=== PATIENT | female | born 1940 | race Caucasian/White ===

== ENCOUNTER 2019-06-15 20:22 | Inpatient (IN) ==
[2019-06-15 20:33] VITALS: BMI 29.2
--- NOTE | 2019-06-15 20:42 | DR.CP ---
HPI Time Seen Time Seen by Provider: 06/15/19 20:41 PCP Primary Care Physician: JANENE Oconnell Chief Complaint Doctor Comments: Patient is 79 year old female who presents with chest pain. She stated that the chest pain is located under her right breast and hurts when she breathes. She states that she has been taking shallow breaths since she's had this pain. patient states that the pain started this AM it has not let up. She is concerned with it. Patient does not report any trauma . She does not have any past medical history of cardiac issues. She states that she is a lifelong nonsmoker. Chief Complaint:: PT AMBULATORY IN ED WITH C/O CHEST PAIN AND SHORTNESS OF BREATH. PT STATES PAIN IS CONSTANT UNDER RIGHT RIB THROUGH TO BACK AND HURTS MORE WHEN SHE BREATHES. PAIN AND SOB STARTED AROUND 5AM. Source History Provided: Patient Mode of Arrival Mode of Arrival: Ambulatory Timing Onset of Chief Complaint: 06/15/19 PMH PMH Past Medical History: Yes Past Medical History: Asthma, Diabetes, GERD, Hypertension and Hypothyroidism Past Medical History Comment: HLD Past Surgical History: Yes Surgical History: Hysterectomy and Tonsillectomy Past Surgical History Comment: CARPAL TUNNEL PITUITARY BRAIN TUMOR Family History History of Family Medical Conditions: Yes Family Medical History: Diabetes Mellitus, Cancer, Coronary Artery Disease and Hypertension Social History Does patient currently use any type of tobacco product: No Have you used tobacco products in the last 12 months: No Type of Tobacco Use: None Does any household member use tobacco: No Alcohol Use: None Do you use any recreational Drugs:: No Lives With: Spouse Lives Where: Home infectious screening In the last 2 months have you had wt loss of >10#?: NO Have you had fever, night sweats or hemotysis?: No Have you traveled outside the country in the last 6 months?: No Isolation: Standard ROS Review of Systems Constitutional: No Symptoms Reported Eyes: No Symptoms Reported ENTM: No Symptoms Reported Respiratoy: Short of Breath Cardiovascular: Chest Pain Gastrointestinal/Abdominal: No Symptoms Reported Genitourinary: No Symptoms Reported Neurological: No Symptoms Reported Musculoskeletal: No Symptoms Reported Integumentary: No Symptoms Reported Hematologic/Lymphatic: No Symptoms Reported Endocrine: No Symptoms Reported Psychiatric: No Symptoms Reported All Other Systems: Reviewed and Negative PE Vitals Vitals: Temperature 98.6 F Pulse Rate [Left Brachial] 87 Pulse Rate 67 Respiratory Rate 18 Blood Pressure 142/65 O2 Sat by Pulse Oximetry 96 General General Appearance: Alert, Anxious and In Distress (moderate ) Head Head Exam: Normal Inspection, Atraumatic and Normocephalic Eyes Eye exam: Normal Appearance, PERRL and EOMI ENT ENT Exam: Normal Exam and Normal Oropharynx Chest Chest Inspection: Normal Inspection and Symmetric Chest Wall Rise Respiratory Respiratory Exam: Normal Lung Sounds Bilat Respiratory Exam: Bilateral: Clear to Auscultation Cardiovascular Cardiovascular Exam: Regular Rate and Normal Rhythm Pulse: Normal Edema: Normal Abdominal Exam Abdominal Exam: Normal Inspection, Normal Bowel Sounds and Soft Extremities Extremities Exam: Normal Inspection and Full ROM Back Back Exam: Normal Inspection and Full ROM Neurologic Neurological Exam: Alert, Oriented X3, CN II-XII Intact and Normal Gait Psychiatric Psychiatric Exam: Normal Affect and Normal Mood Skin Skin Exam: Warm, Dry, Intact and Normal Color MDM Additional Information Additional Information Obtained From: Old Records Differential Diagnosis Differential Diagnosis: Angina, Aortic Dissection, Chest Wall Pain, Costochondritis, Esophageal Reflux/Spasm, Gastritis, Myocardial Infarction, Pleuritis, Pneumonia and Pulmonary Embolus COURSE Treatment Treatment: I spoke with radiologists at approximately 00:55 he relayed to me that the patient had extensive pulmonary emboli throughout the right upper lower and middle lobe. Spoke with doctor Tran at 1:50 AM pt started on heparin drip. He accepts admission. Patient has been stable an O2 saturation has been greater than 92 % her entire Ed state. Pain has been addressed with pain medication. Patient was admitted to the hospital ICU. Reevaluation 1st: Unchanged (22:00 pt stable ) 2nd: Improved (23:05 pt states that pain has drastically improved since pain medication and she feels like she can breath without issue) 3rd: Unchanged (01:06 pt stable I discussed with her the findings on the CT and the need for admission ) Consultation Consultation Comments: Dr. Tran accepts admission at 01:50 Education/Counseling Education/Counseling: Patient, Family, Education and Counseling Educated On: Treatment, Diagnosis, Prognosis and Needs for Follow Up ROR Labs Reviewed Laboratory Results Reviewed?: Yes Result Diagrams: 06/19/19 04:49 06/19/19 04:49 Laboratory: WBC 13.1 X10^3/uL (3.6-10.0) H 06/15/19 21:27 RBC 4.44 X10^6/uL (3.5-5.4) 06/15/19: Hgb 13.4 g/dL (12.0-16.0) 06/15/19: Hct 39.9 % (36.0-47.0) 06/15/19: MCV 90.0 fL (80.0-100.0) 06/15/19: MCH 30.3 pg (27.0-34.0) 06/15/19: MCHC 33.7 g/dL (33.0-35.0) 06/15/19: RDW 13.0 % (11.6-16.5) 06/15/19: Plt Count 180 X10^3/uL (150.0-450.0) 06/15/19 MPV 9.7 fL (7.4-11.0) 06/15/19 Neut % (Auto) 69.6 % (42.0-75.0) 06/15/19 Lymph % (Auto) 16.9 % (21.0-51.0) L 06/15/19 [place] % (Auto) 10.6 % (0.0-13.0) 06/15/19 Eos % (Auto) 1.5 % (0.9-2.9) 06/15/19 Baso % (Auto) 1.4 % (0.2-1.0) H 06/15/19 Neut # (Auto) 9.1 x10^3/uL (2.2-4.8) H 06/15/19 Lymph # (Auto) 2.2 X10^3/uL (1.3-2.9) 06/15/19: [place] # (Auto) 1.4 x10^3/uL (0.3-0.8) H 06/15/19 Eos # (Auto) 0.2 x10^3/uL (0.0-0.2) 06/15/19 Baso # (Auto) 0.2 X10^3/uL (0.0-0.1) H 06/15/19 Absolute Nucleated RBC 0.0 /100WBC 06/15/19: PT 12.8 SECONDS (11.8-14.3) 06/15/19 21: INR Target Range - 06/15/19 21: INR 1.00 (0.8-1.3) 06/15/19 21: APTT 25.9 SECONDS (22.9-36.5) 06/15/19 21: PTT Comment - 06/15/19 21: D-Dimer 1080 ng/mL (0-400) H* 06/15/19 21: Sodium 139 mmol/L (136-145) 06/15/19 21: Corrected Sodium TNP 06/15/19 21: Potassium 3.9 mmol/L (3.5-5.1) 06/15/19: Chloride 101 mmol/L (98-107) 06/15/19: Carbon Dioxide 31.3 mmol/L (21-32) 06/15/19 21: BUN 15 mg/dL (7-18) 06/15/19 21: Creatinine 0.92 mg/dL (0.55-1.02) 06/15/19 21: Est GFR (MDRD) Af Amer > 60 (>60) 06/15/19: Est GFR (MDRD) Non-Af > 60 (>60) 06/15/19 21: Glucose 106 mg/dL (65-99) H 06/15/19 21: Calcium 9.2 mg/dL (8.5-10.1) 06/15/19: Corrected Calcium 9.8 mg/dL (8.5-10.1) 06/15/19 21: Total Bilirubin 0.30 mg/dL (0.2-1.0) 06/15/19 21: AST 16 Units/L (15-37) 06/15/19 21: ALT 21 Units/L (12-78) 06/15/19 21: Alkaline Phosphatase 66 Units/L (46-116) 06/15/19 21: Creatine Kinase 44 Units/L (26-192) 06/15/19 21: CK-MB (CK-2) < 1.0 ng/mL (0-4.0) 06/15/19 21:27 CK/CKMB % Calc 2.3 % (<4) 06/15/19 21:27 Troponin I < 0.02 ng/mL (0-1.5) 06/15/19 21:27 Total Protein 7.2 g/dL (6.4-8.2) 06/15/19 21:27 Albumin 3.3 g/dL (3.4-5.0) L 06/15/19 21:27 Globulin 3.9 g/dL (2.5-4.5) 06/15/19 21:27 Albumin/Globulin Ratio 0.8 Ratio (1.1-2.1) L 06/15/19 21:27 Other Results Comments: CTA of chest showed right sided multiple PEs in upper middle and lower lobes , this was discussed with radiologist, there was issues with official report crossing over and it will be fixed in the AM. XRAY XRAY Interpreted by: Both X-ray Results: Preliminary read: possible right lower lobe atelectasis EKG Rate: 72 (no prior EKG available in EMR, read by Codey You @ 06/15/2019 22:00) [place]: Normal Rhythm: NSR Block: None Hypertrophy: None ST: Nonsp Opioid Opioid Risk Tool Age (Williams box if 16-45): No History of Preadolescent Sexual Abuse: No Total: 0 Total Score Risk Category: Low Risk Copyright: Gibbs predicting aberrant behaviors Diagnosis Discharge Problem: Pulmonary emboli Qualifiers: Pulmonary embolism type: multiple subsegmental (without acute cor pulmonale) Qualified Code(s): I26.94 - Multiple subsegmental pulmonary emboli without acute cor pulmonale Narrative Support Text: Today the patient was seen in the emergency department. All labs, imaging, consults with other specialists, and procedures were discussed with the patient and or patients family. All emergent needs such as pain mgmt, medical mgmt, Procedures, or consultations were addressed. The care plan has been discussed with the patient and or patients family. Patient and or family stated agreement and understanding of risks and benefits of care plans. admitted to hospital. please see EMR for full course of care. Instructions Instructions: Shortness of Breath, Adult, [id number] Pulmonary Embolism Abdominal Pain, Adult, Lwky-jg-Mbuy Type 1 Diabetes Mellitus, Diagnosis, Adult, Euqb-nl-Xucv Hypertension, Hokz-rj-Vwzu Community-Acquired Pneumonia, Adult, Jwbc-oi-Rbtx Forms: Excuse From Work or School Patient Portal
[2019-06-15] MEDS ORDERED: METHOCARBAMOL IM ONE (21:19)
[2019-06-15] MEDS ORDERED: ASPIRIN PO STA (21:20)
[2019-06-15] MEDS ORDERED: ASPIRIN ONE (21:35)
[2019-06-15] MEDS ORDERED: FLEXERIL TAB 10 MG ONE (21:36)
[2019-06-15] MEDS ORDERED: FLEXERIL TAB 10 MG PO ONE (21:38)
[2019-06-15 21:46] LABS: BASOPHILS # (AUTO) 0.2 X10^3/uL (0.0-0.1); BASOPHILS % (AUTO) 1.4 % (0.2-1.0); EOSINOPHILS # (AUTO) 0.2 x10^3/uL (0.0-0.2); EOSINOPHILS % (AUTO) 1.5 % (0.9-2.9); HEMATOCRIT 39.9 % (36.0-47.0); HEMOGLOBIN 13.4 g/dL (12.0-16.0); LYMPHOCYTES # (AUTO) 2.2 X10^3/uL (1.3-2.9); LYMPHOCYTES % (AUTO) 16.9 % (21.0-51.0); MEAN CORPUSCULAR HEMOGLOBIN 30.3 pg (27.0-34.0); MEAN CORPUSCULAR HGB CONC 33.7 g/dL (33.0-35.0); MEAN PLATELET VOLUME 9.7 fL (7.4-11.0); MONOCYTES # (AUTO) 1.4 x10^3/uL (0.3-0.8); MONOCYTES % (AUTO) 10.6 % (0.0-13.0); NEUTROPHILS # (AUTO) 9.1 x10^3/uL (2.2-4.8); NEUTROPHILS % (AUTO) 69.6 % (42.0-75.0); PLATELET COUNT 180 X10^3/uL (150.0-450.0); RED BLOOD COUNT 4.44 X10^6/uL (3.5-5.4); WHITE BLOOD COUNT 13.1 X10^3/uL (3.6-10.0)
[2019-06-15 22:05] LABS: BLOOD UREA NITROGEN 15 mg/dL (7-18); CALCIUM 9.2 mg/dL (8.5-10.1); CARBON DIOXIDE 31.3 mmol/L (21-32); CHLORIDE 101 mmol/L (98-107); CREATININE 0.92 mg/dL (0.55-1.02); SODIUM 139 mmol/L (136-145); TROPONIN I < 0.02 ng/mL (0-1.5); eGFR NON BLACK RACES > 60 (>60)
[2019-06-15 22:07] LABS: ALANINE AMINOTRANSFERASE 21 Units/L (12-78); ALBUMIN 3.3 g/dL (3.4-5.0); ALKALINE PHOSPHATASE 66 Units/L (46-116); ASPARTATE AMINO TRANSFERASE 16 Units/L (15-37); CKMB % 2.3 % (<4); COR CA(FOR HYPOALB) 9.8 mg/dL (8.5-10.1); CREATINE KINASE 44 Units/L (26-192); CREATINE KINASE MB < 1.0 ng/mL (0-4.0); TOTAL PROTEIN 7.2 g/dL (6.4-8.2)
[2019-06-15] MEDS ORDERED: NS 100 ML IV 100 ML IV ONE (23:31)
[2019-06-16] MEDS ORDERED: HEPARIN SODIUM IN D5W 25,000 UNITS/500 ML BAG IV PRN (01:43)
[2019-06-16] MEDS ORDERED: LOVENOX INJ 80 MG SYR SC SCH (02:00)
[2019-06-16] MEDS ORDERED: HEPARIN SODIUM INJ 5000 UNITS IVP ONE ×2 (02:22→18:50)
[2019-06-16] MEDS ORDERED: HEPARIN SODIUM INJ 5000 UNITS ONE (02:27)
[2019-06-16] MEDS ORDERED: HEPARIN SODIUM IN D5W 25,000 UNITS/500 ML BAG IV ONE (02:27)
[2019-06-16 02:39] LABS: BILIRUBIN,URINE NEGATIVE (NEGATIVE); BLOOD/HEMOGLOBIN,URINE 3+ (NEGATIVE); GLUCOSE, URINE NEGATIVE (NEGATIVE); KETONES,URINE NEGATIVE (NEGATIVE); LEUKOCYTE ESTERASE ,URINE NEGATIVE (NEGATIVE); NITRITES,URINE NEGATIVE (NEGATIVE); PROTEIN,URINE NEGATIVE (NEGATIVE); UROBILINOGEN,URINE NORMAL (NORMAL)
[2019-06-16 02:57] LABS: APPEARANCE,URINE SLIGHTLY HAZY (CLEAR); COLOR,URINE YELLOW (YELLOW)
[2019-06-16 02:58] LABS: CKMB % 2.6 % (<4); CREATINE KINASE 39 Units/L (26-192); CREATINE KINASE MB < 1.0 ng/mL (0-4.0); TROPONIN I < 0.02 ng/mL (0-1.5)
[2019-06-16 02:58] LABS: BACTERIA,URINE NEGATIVE /HPF (NEGATIVE); SQUAMOUS EPITHELIAL CELL,UR RARE /HPF (NEGATIVE)
[2019-06-16 05:27] LABS: BASOPHILS # (AUTO) 0.1 X10^3/uL (0.0-0.1); BASOPHILS % (AUTO) 0.6 % (0.2-1.0); EOSINOPHILS # (AUTO) 0.1 x10^3/uL (0.0-0.2); EOSINOPHILS % (AUTO) 0.8 % (0.9-2.9); HEMATOCRIT 36.6 % (36.0-47.0); HEMOGLOBIN 12.4 g/dL (12.0-16.0); LYMPHOCYTES # (AUTO) 1.8 X10^3/uL (1.3-2.9); LYMPHOCYTES % (AUTO) 14.8 % (21.0-51.0); MEAN CORPUSCULAR HEMOGLOBIN 30.4 pg (27.0-34.0); MEAN CORPUSCULAR HGB CONC 33.9 g/dL (33.0-35.0); MEAN CORPUSCULAR VOLUME 89.7 fL (80.0-100.0); MEAN PLATELET VOLUME 9.5 fL (7.4-11.0); MONOCYTES # (AUTO) 1.2 x10^3/uL (0.3-0.8); MONOCYTES % (AUTO) 9.7 % (0.0-13.0); NEUTROPHILS # (AUTO) 9.2 x10^3/uL (2.2-4.8); NEUTROPHILS % (AUTO) 74.1 % (42.0-75.0); PLATELET COUNT 159 X10^3/uL (150.0-450.0); RED BLOOD COUNT 4.08 X10^6/uL (3.5-5.4); WHITE BLOOD COUNT 12.5 X10^3/uL (3.6-10.0)
[2019-06-16 05:50] LABS: ALANINE AMINOTRANSFERASE 17 Units/L (12-78); ALBUMIN 2.8 g/dL (3.4-5.0); ALKALINE PHOSPHATASE 59 Units/L (46-116); ASPARTATE AMINO TRANSFERASE 15 Units/L (15-37); BLOOD UREA NITROGEN 14 mg/dL (7-18); CALCIUM 8.2 mg/dL (8.5-10.1); CARBON DIOXIDE 28.6 mmol/L (21-32); CHLORIDE 100 mmol/L (98-107); COR CA(FOR HYPOALB) 9.2 mg/dL (8.5-10.1); COR NA(FOR HYPERGLY) 139 mmol/L (136-145); CREATININE 0.94 mg/dL (0.55-1.02); SODIUM 136 mmol/L (136-145); TOTAL PROTEIN 6.1 g/dL (6.4-8.2); eGFR NON BLACK RACES > 60 (>60)
--- NOTE | 2019-06-16 05:50 | RAD ---
STUDY: FRONTAL VIEW CHESTCOMPARISON: NoneHISTORY: C/O CHEST PAIN AND SHORTNESS OF BREATH.FINDINGS:No focal consolidation is seen.The heart size is within normal limitsThe mediastinum is unremarkable.There is no evidence of pleural effusion or gross pneumothorax.Trachea is midline.IMPRESSION:1. NO FOCAL CONSOLIDATION SEEN.2. THE HEART SIZE IS NORMAL.Electronically signed by: Nicholas Hayden (Jun 16, 2019 05:48:56)
[2019-06-16] MEDS ORDERED: K-RIDER 10 MEQ/NS 100 ML 10 MEQ/100 ML BAG IV PRN (06:05)
[2019-06-16] MEDS ORDERED: POTASSIUM CHL 40 MEQ/NS 0.45% 500 ML IV PRN (06:05)
[2019-06-16] MEDS ORDERED: HumuLIN R SC PRN (06:05)
[2019-06-16] MEDS ORDERED: MICRO K EXTEN CAP 10 MEQ PO PRN (06:05)
[2019-06-16] MEDS ORDERED: POTASSIUM CHL 60 MEQ/NS 0.45% 500 ML IV PRN (06:05)
[2019-06-16] MEDS ORDERED: POTASSIUM CHLORIDE LIQ 20 MEQ UDC PO PRN (06:05)
[2019-06-16] MEDS ORDERED: KLOR-CON PO PRN (06:05)
[2019-06-16] MEDS ORDERED: K-DUR TAB 20 MEQ PO ONE (06:13)
[2019-06-16] MEDS ORDERED: HumuLIN R ONE (06:14)
[2019-06-16] MEDS: K-DUR TAB 20 MEQ PO PRN (06:25)
--- NOTE | 2019-06-16 09:07 | CT ---
HISTORYChest pain, shortness of breathSTUDYCTA chest for pulmonary embolusTechnique: Axial post-contrast images with coronal, sagittal, and 3 dimensional maximum intensity projection images obtained and evaluated. Dose reduction procedures were used with mA/kv adjusted for body size.COMPARISONNoneFINDINGSThe examination is positive for acute pulmonary thromboembolic disease with emboli identified in a segmental branch to the right upper lobe, nonocclusive embolus in the arterial branch to the right lower lobe, and multiple right lower lobe segmental branches. Examination of the mediastinum demonstrated no evidence for mediastinal masses, enlarged mediastinal or enlarged hilar adenopathy, or significant aortic abnormality. There is a trace right pleural effusion present. No chest wall or axillary abnormality is identified. Those portions of the upper abdominal organs visualized were within normal limits. Examination of the lung cohen demonstrated no significant nodules or masses. There are some dependent atelectatic changes in the lung bases right greater than left. No definite acute alveolar infiltrates or areas of consolidation are identified. No peribronchial thickening or bronchiectasis is identified.IMPRESSIONExam positive for acute pulmonary thromboembolic disease involving the right upper and right lower lobes as described in detail aboveNo definite acute infiltratesMild dependent atelectatic changes in the lung bases bilaterally.Electronically signed by: MAGGI TURNER (Jun 16, 2019 09:05:52)
[2019-06-16 09:23] LABS: CKMB % 3.6 % (<4); CREATINE KINASE 28 Units/L (26-192); CREATINE KINASE MB < 1.0 ng/mL (0-4.0); TROPONIN I < 0.02 ng/mL (0-1.5)
[2019-06-16] MEDS ORDERED: NS 500 ML IV 500 ML IV ONE (09:27)
[2019-06-16] MEDS: MAGNESIUM SULFATE 1 GRAM/100 mL PREMIX 1 GM/100 ML BAG IV PRN ×2 (09:34→10:30)
[2019-06-16 10:36] LABS: ABG BASE EXCESS 5.9 mmol/L (-2.0-2.0); ABG HCO3 29.7 mmol/L (22-26)
[2019-06-16] MEDS: HumuLIN R SC SCH ×3 (11:21→21:00)
[2019-06-16] MEDS ORDERED: DUONEB 0.5 MG/3 MG (3 mL) NEB SCH (11:22)
[2019-06-16] MEDS ORDERED: NORCO 5/325 MG TAB PO PRN (13:23)
--- NOTE | 2019-06-16 13:31 | DR.H&P ---
H&P - History & Physical for Day of: H&P Date: 06/16/19 - Chief Complaint Chief Complaint: RIB PAIN, CHEST PAIN, SOB - History of Present Illness History of Present Illness: PT IS 79 WF ER ADMISSION who presents with chest pain. She stated that the chest pain is located under her right breast and hurts when she breathes. She states that she has been taking shallow breaths since she's had this pain. patient states that the pain started this AM it has not let up. She is concerned with it. Patient does not report any trauma . She does not have any past medical history of cardiac issues. She states that she is a lifelong nonsmoker. Pt has PMH dm, htn, oa. Pt reports she is up to date on mmg and colonoscopy. - Past Medical History Past Medical History: Hypertension, Diabetes, Hypothyroidism, Asthma, GERD - Past Surgical History Surgical History: Hysterectomy - Family History Family Medical History: Diabetes Mellitus, Cancer, PA, Sudden Cardiac , Hypertension - Social History Does patient currently use any type of tobacco product: No Have you used tobacco products in the last 12 months: No Type of Tobacco Use: None Does any household member use tobacco: No Alcohol Use: None Drug Use: None - Medications Home Medications: naproxen [From Naprosyn] Allergy (Verified 06/15/19 20:33) CONTINUE taking the following medications amlodipine 5 mg PO DAILY 06/15/19 [History] aspirin [Aspirin Low Dose] 81 mg PO DAILY 06/15/19 [History] atorvastatin 20 mg PO QHS 06/15/19 [History] calcium carbonate-vitamin D3 [Calcium 600 + D(3)] 1 cap PO DAILY 06/15/19 [History] hydrochlorothiazide 12.5 mg PO QAM 06/15/19 [History] levothyroxine 125 mcg PO DAILY 06/15/19 [History] losartan 100 mg PO DAILY 06/15/19 [History] metformin 750 mg PO BID 06/15/19 [History] metoprolol succinate 100 mg PO DAILY 06/15/19 [History] om [id number]-kpeogac [Vit 3] 1 cap PO DAILY 06/15/19 [History] qgvyr-7x-api-epa-fish oil [[place]-3 Fish Oil] 1 cap PO DAILY 06/15/19 [History] pantoprazole 40 mg PO QAM 06/15/19 [History] pioglitazone 15 mg PO DAILY 06/15/19 [History] - Review of Systems Constitutional: Weakness Eyes: No Symptoms Reported, Vision Change Respiratory: Shortness of Breath, SOB with Excertion, Pleuritic Pain Cardiovascular: Chest Pain Gastrointestinal: No Symptoms Reported Genitourinary: No Symptoms Reported Musculoskeletal: Back Pain Skin: No Symptoms Reported Neurological: Weakness - Physical Exam Vital Signs: Temperature 98.9 F Pulse Rate [Left Brachial] 87 Pulse Rate 72 Respiratory Rate 29 Blood Pressure 148/76 O2 Sat by Pulse Oximetry 97 Oriented: Normal Eyes: Normal Ear: Normal Nose: Normal Throat: Normal Respiratory: Wheezes Throughout, RLL Diminished, LLL Diminished Cardiovascular: Normal, Murmur : Normal Auscultation: Bowel Sounds: Normal Palpation: Normal Tenderness: RUQ Skin: Decreased Turgur Musculoskeletal: Back:Thoracic, Back:Lumbar Psychiatric: Anxiety Affect: Anxious Speech Pattern: Clear, Appropriate - Assessment/Plan (1) Chest pain Status: Acute Plan: ADMIT, SERIAL CE AND EKG. CONTINUOUS SUPPLEMENTAL O2. CTA CHEST IN ER, HEPARIN DRIP. VERIFY HOME MEDICATION, SSI, BS CONTROL. ECHO, VENOUS US LE, RESP CONSULT. PAIN CONTROL, PT/PTT/INR. HYPER COAGULATION PANEL ON ADMISSION (2) Shortness of breath Status: Acute (3) Diabetes Status: Acute (4) Hypertension Status: Acute (5) Pulmonary emboli Qualifiers: Pulmonary embolism type: multiple subsegmental (without acute cor pulmonale) Qualified Code(s): I26.94 - Multiple subsegmental pulmonary emboli without acute cor pulmonale Status: Acute - Allergies Allergies/Adverse Reactions: Allergies Allergy/AdvReac Type Severity Reaction Status Date / Time naproxen [From Naprosyn] Allergy Verified 06/15/19 20:33
[2019-06-16 14:04] LABS: FREE T4 (FREE THYROXINE) 1.59 ng/dL (0.76-1.46); TSH (3RD GENERATION) 2.204 uIU/mL (0.358-3.74)
[2019-06-16] MEDS ORDERED: TOPROL XL PO ONE (14:59)
[2019-06-16] MEDS: ROCEPHIN VIAL 1 GRAM 1 G in NS 100 ML IV + SPIKE MINIBAG* 100 ML IV SCH (15:07)
[2019-06-16] MEDS: TOPROL XL PO SCH (15:07)
[2019-06-16 15:32] LABS: CREATINE KINASE 25 Units/L (26-192); CREATINE KINASE MB < 1.0 ng/mL (0-4.0); TROPONIN I < 0.02 ng/mL (0-1.5)
--- NOTE | 2019-06-16 16:22 | VAS ---
HISTORYHistory of pulmonary embolus.STUDYLOWER EXT VENOUS, BILATERALCOMPARISONNone.TECHNIQUEMultiple marmolejo scale and color flow Doppler images of the deep venous system were obtained of the right and left lower extremity.FINDINGSThe deep venous system of the ri ght and left lower extremities were evaluated from the level of the common femoral vein through the popliteal vein. Normal color flow and augmentation can be observed. In addition, normal compression is seen throughout the deep venous system.IMPRESSIONNegative for DVT.Electronically signed by: VIKTORIYA WILSON (Jun 16, 2019 16:20:44)
[2019-06-16] MEDS: DUONEB 0.5 MG/3 MG (3 mL) NEB PRN (20:46)
[2019-06-16] MEDS: PULMICORT NEB TX 0.5 MG NEB SCH (20:46)
[2019-06-16] MEDS: LIPITOR TAB 20 MG PO SCH (21:00)
[2019-06-17] MEDS ORDERED: HumuLIN R SC PRN (01:59)
[2019-06-17 05:49] LABS: BASOPHILS # (AUTO) 0.1 X10^3/uL (0.0-0.1); BASOPHILS % (AUTO) 1.5 % (0.2-1.0); EOSINOPHILS # (AUTO) 0.3 x10^3/uL (0.0-0.2); EOSINOPHILS % (AUTO) 2.9 % (0.9-2.9); HEMATOCRIT 36.7 % (36.0-47.0); HEMOGLOBIN 12.3 g/dL (12.0-16.0); LYMPHOCYTES # (AUTO) 2.3 X10^3/uL (1.3-2.9); LYMPHOCYTES % (AUTO) 22.3 % (21.0-51.0); MEAN CORPUSCULAR HEMOGLOBIN 30.5 pg (27.0-34.0); MEAN CORPUSCULAR HGB CONC 33.6 g/dL (33.0-35.0); MEAN CORPUSCULAR VOLUME 90.6 fL (80.0-100.0); MEAN PLATELET VOLUME 9.9 fL (7.4-11.0); MONOCYTES # (AUTO) 1.1 x10^3/uL (0.3-0.8); MONOCYTES % (AUTO) 10.7 % (0.0-13.0); NEUTROPHILS # (AUTO) 6.4 x10^3/uL (2.2-4.8); NEUTROPHILS % (AUTO) 62.6 % (42.0-75.0); PLATELET COUNT 154 X10^3/uL (150.0-450.0); RED BLOOD COUNT 4.05 X10^6/uL (3.5-5.4); RED CELL DISTRIBUTION WIDTH 12.9 % (11.6-16.5); WHITE BLOOD COUNT 10.1 X10^3/uL (3.6-10.0)
[2019-06-17 05:57] LABS: ALANINE AMINOTRANSFERASE 15 Units/L (12-78); ALBUMIN 2.5 g/dL (3.4-5.0); ALKALINE PHOSPHATASE 43 Units/L (46-116); ASPARTATE AMINO TRANSFERASE 10 Units/L (15-37); BLOOD UREA NITROGEN 13 mg/dL (7-18); CARBON DIOXIDE 31.1 mmol/L (21-32); CHLORIDE 103 mmol/L (98-107); COR CA(FOR HYPOALB) 9.2 mg/dL (8.5-10.1); CREATININE 0.74 mg/dL (0.55-1.02); SODIUM 138 mmol/L (136-145); TOTAL PROTEIN 6.1 g/dL (6.4-8.2); eGFR NON BLACK RACES > 60 (>60)
[2019-06-17] MEDS ORDERED: TOPROL XL PO ONE (08:28)
[2019-06-17] MEDS: PROTONIX TAB 40 MG PO SCH (08:31)
[2019-06-17] MEDS: SYNTHROID 125 mcg TAB PO SCH (08:32)
[2019-06-17] MEDS: TOPROL XL PO SCH (08:32)
[2019-06-17] MEDS: ROCEPHIN VIAL 1 GRAM 1 G in NS 100 ML IV + SPIKE MINIBAG* 100 ML IV SCH (08:32)
[2019-06-17] MEDS: COZAAR PO SCH (08:35)
[2019-06-17] MEDS: PULMICORT NEB TX 0.5 MG NEB SCH ×2 (08:35→20:30)
[2019-06-17 09:43] LABS: ABG ALLEN TEST POS; ABG BASE EXCESS 6.1 mmol/L (-2.0-2.0); ABG HCO3 30.6 mmol/L (22-26)
--- NOTE | 2019-06-17 09:48 | RAD ---
HISTORYSOBSTUDYPortable AP chestCOMPARISONFebruary 2019FINDINGSThe heart is mildly enlarged. The right costophrenic angle is indistinct. Minimal blank sting of the left costophrenic angle is suggested. The upper lobes are clear. No significant bony abnormality is demonstrated.IMPRESSIONProbable tiny pleural effusions. Minimal infiltrate suggested at the right lateral basilar segment of the right lower lobe.Electronically signed by: JUAN LOCKHART (Jun 17, 2019 09:47:36)
[2019-06-17] MEDS ORDERED: HEPARIN SODIUM INJ 5000 UNITS IVP ONE ×2 (12:14→17:57)
[2019-06-17] MEDS ORDERED: HEPARIN SODIUM INJ 5000 UNITS ONE (12:23)
--- NOTE | 2019-06-17 17:27 | CT ---
ABDOMEN/PELVIS WITH CONHISTORY: ABDOMINAL PAINComparison:06/15/2019Technique:Multiple axial images of the abdomen and pelvis were obtained from the lung bases to the pubic symphysis following the administration of IV contrast as well as oral contrast . Dose reduction techniques including Automated Exposure Control (AEC) and adjustment of mA and kV were utlized.Findings:The heart is normal in size. There is no pericardial effusion. Trace right pleural effusion with adjacent atelectasis. Worsening when compared to prior. Focal peripheral consolidation of the right lower lobe as well which is new from prior.Liver and spleen are normal in size, enhancement characteristics and contour. No focal lesions. The portal vein is patent. No ductal dilitation. Gallbladder is present. No calcified gallstones or gallbladder wall thickening. The pancreas is unremarkable. Heterogeneously enhancing right adrenal mass measuring 5.0 cm which is unchanged. Kidneys enhance symmetrically without hydronephrosis or nephrolithiasis. Adjacent to the origin of the left renal artery is a peripherally calcified lesion measuring 1.8 cm for example on series 4, image 30.No bowel obstruction or inflammation. Normal appendix. Diverticulosis without diverticulitis. No abnormal appearing mesenteric or retroperitoneal lymph nodes. . No free fluid or fluid collections.The bladder is normal in appearance. Uterus not seen. No free fluid or abnormal pelvic lymph nodes.No aggressive osseous lesions.IMPRESSION:1. No definite source of acute abdominal pain identified on this examination.2. Worsening consolidative opacities at the right lung base as well as enlarging right pleural effusion. Correlate with symptoms of pneumonia.3. 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 Large right adrenal mass. This is indeterminate on this examination but could be evaluated by MRI on a nonemergent outpatient basis.Electronically signed by: ANYA CALHOUN (Jun 17, 2019 17:26:15)
--- NOTE | 2019-06-17 18:32 | PCM.PROG ---
Progress Note - Progress Note for Day of Date of Exam: 06/17/19 - Subjective Subjective: PT IS 79 WF ER ADMISSION WITH SOB DUE TO PULMONARY EMBOLI AND HYPOXIA. PT CONTINUED TO CO SOB ON EXERTION, IMPROVING AT REST. PT HAD BEEN ON HEPARIN DRIP SINCE ADMISSION. PT HAD REPEAT ABG WITH IMPROVING PO2. PT HAD DIFFUSE LOWER EXP WHEEZING AND WAS STARTED ON ROCEPHIN AND DUO NEBS LAST PM. WE ENCOURAGED SPUTUM PRODUCTION, ROBITUSSIN ORDERED TODAY. PT BP ELEVATED AND REPORTS SHE HAD BEEN HAVING TROUBLE WITH UNCONTROLLED PRESSURE FOR SEVERAL MONTHS. PT HAD CO RUQ TENDERNESS AND UPPER ABDOMINAL, RIGHT FLANK PAIN. CT ABD PELVIS WITH CONTRAST ORDERED. WBC 10.2, RENAL FUNCTION IS STABLE. - Past Medical Family Social History Past Med/Fam/Surg Hx: No changes since H&P Allergies: Allergies naproxen [From Naprosyn] Allergy (Verified 06/15/19 20:33) - Review of Systems ROS: No change since H&P - Vital Signs and I&O's Vital Signs: Temperature 97.0 F Pulse Rate [Left Brachial] 87 Pulse Rate 72 Respiratory Rate 39 Blood Pressure 161/76 O2 Sat by Pulse Oximetry 81 Intake and Output: Intake & Output 06/15/19 06/16/19 06/17/19 06/18/19 11:59 11:59 11:59 11:59 Intake Total 310 / 310 1386 / 1386 683 / 683 Balance 310 / 310 1386 / 1386 683 / 683 - Physical Exam Oriented: Normal Eyes: Normal Ear: Normal Nose: Normal Throat: Normal Respiratory: Diminished, Wheezes Cardiovascular: Normal, Murmur : Normal Auscultation: Bowel Sounds: Normal Tenderness: RUQ Skin: Decreased Turgur Musculoskeletal: Back:Thoracic, Back:Lumbar Psychiatric: Anxiety Affect: Anxious Speech Pattern: Clear, Appropriate - Laboratory and Diagnostics Result Diagrams: 06/17/19 05:34 06/17/19 05:34 Labs: Laboratory WBC 10.1 X10^3/uL (3.6-10.0) H 06/17/19 05:34 RBC 4.05 X10^6/uL (3.5-5.4) 06/17/19 05:34 Hgb 12.3 g/dL (12.0-16.0) 06/17/19 05:34 Hct 36.7 % (36.0-47.0) 06/17/19 05:34 MCV 90.6 fL (80.0-100.0) 06/17/19 05:34 MCH 30.5 pg (27.0-34.0) 06/17/19 05:34 MCHC 33.6 g/dL (33.0-35.0) 06/17/19 05:34 RDW 12.9 % (11.6-16.5) 06/17/19 05:34 Plt Count 154 X10^3/uL (150.0-450.0) 06/17/19 05:34 MPV 9.9 fL (7.4-11.0) 06/17/19 05:34 Neut % (Auto) 62.6 % (42.0-75.0) 06/17/19 05:34 Lymph % (Auto) 22.3 % (21.0-51.0) 06/17/19 05:34 [place] % (Auto) 10.7 % (0.0-13.0) 06/17/19 05:34 Eos % (Auto) 2.9 % (0.9-2.9) 06/17/19 05:34 Baso % (Auto) 1.5 % (0.2-1.0) H 06/17/19 05:34 Neut # (Auto) 6.4 x10^3/uL (2.2-4.8) H 06/17/19 05:34 Lymph # (Auto) 2.3 X10^3/uL (1.3-2.9) 06/17/19 05:34 [place] # (Auto) 1.1 x10^3/uL (0.3-0.8) H 06/17/19 05:34 Eos # (Auto) 0.3 x10^3/uL (0.0-0.2) H 06/17/19 05:34 Baso # (Auto) 0.1 X10^3/uL (0.0-0.1) 06/17/19 05:34 Absolute Nucleated RBC 0.0 /100WBC 06/17/19 05:34 PT 13.8 SECONDS (11.8-14.3) 06/16/19 14:35 INR Target Range - 06/16/19 14:35 INR 1.10 (0.8-1.3) 06/16/19 14:35 APTT 39.6 SECONDS (22.9-36.5) H 06/17/19 17:30 PTT Comment - 06/17/19 17:30 D-Dimer 1080 ng/mL (0-400) H* 06/15/19 21:27 Sample Site Rrad 06/17/19 09:33 ABG pH 7.460 (7.35-7.45) H 06/17/19 09:33 ABG pCO2 43.0 mmHg (35.0-45.0) 06/17/19 09:33 ABG pO2 87.0 mmHg (80.0-100.0) 06/17/19 09:33 ABG HCO3 30.6 mmol/L (22-26) H* 06/17/19 09:33 ABG O2 Saturation 97.0 % (90-100) 06/17/19 09:33 ABG Base Excess 6.1 mmol/L (-2.0-2.0) H 06/17/19 09:33 Dayo Test Pos 06/17/19 09:33 A-a Gradient 87.0 mmHg 06/17/19 09:33 FiO2 32.0 06/17/19 09:33 Blood Gas Comments Pt yolanda well elj cdn 06/17/19 09:33 Sodium 138 mmol/L (136-145) 06/17/19 05:34 Corrected Sodium TNP 06/17/19 05:34 Potassium 3.5 mmol/L (3.5-5.1) 06/17/19 05:34 Chloride 103 mmol/L (98-107) 06/17/19 05:34 Carbon Dioxide 31.1 mmol/L (21-32) 06/17/19 05:34 BUN 13 mg/dL (7-18) 06/17/19 05:34 Creatinine 0.74 mg/dL (0.55-1.02) 06/17/19 05:34 Est GFR (MDRD) Af Amer > 60 (>60) 06/17/19 05:34 Est GFR (MDRD) Non-Af > 60 (>60) 06/17/19 05:34 Glucose 109 mg/dL (65-99) H 06/17/19 05:34 POC Glucose (mg/dL) 148 mg/dL (65-99) H 06/17/19 15:55 Calcium 8.0 mg/dL (8.5-10.1) L 06/17/19 05:34 Corrected Calcium 9.2 mg/dL (8.5-10.1) 06/17/19 05:34 Magnesium 2.0 mg/dL (1.7-2.9) 06/17/19 05:34 Total Bilirubin 0.30 mg/dL (0.2-1.0) 06/17/19 05:34 AST 10 Units/L (15-37) L 06/17/19 05:34 ALT 15 Units/L (12-78) 06/17/19 05:34 Alkaline Phosphatase 43 Units/L (46-116) L 06/17/19 05:34 Lactate Dehydrogenase 258 Units/L (81-234) H 06/17/19 05:34 Creatine Kinase 25 Units/L (26-192) L 06/16/19 14:35 CK-MB (CK-2) < 1.0 ng/mL (0-4.0) 06/16/19 14:35 CK/CKMB % Calc 4.0 % (<4) 06/16/19 14:35 Troponin I < 0.02 ng/mL (0-1.5) 06/16/19 14:35 Total Protein 6.1 g/dL (6.4-8.2) L 06/17/19 05:34 Albumin 2.5 g/dL (3.4-5.0) L 06/17/19 05:34 Globulin 3.6 g/dL (2.5-4.5) 06/17/19 05:34 Albumin/Globulin Ratio 0.7 Ratio (1.1-2.1) L 06/17/19 05:34 Free T4 1.59 ng/dL (0.76-1.46) H 06/16/19 05:06 TSH 3rd Generation 2.204 uIU/mL (0.358-3.74) 06/16/19 05:06 Specimen Type Clean catch urine 06/16/19 02:16 Urine Color Yellow (YELLOW) 06/16/19 02:16 Urine Appearance Slightly hazy (CLEAR) 06/16/19 02:16 Urine pH 6.0 (5.0 - 8.0) 06/16/19 02:16 Ur Specific [place] 1.010 (1.000-1.030) 06/16/19 02:16 Urine Protein Negative (NEGATIVE) 06/16/19 02:16 Urine Glucose (UA) Negative (NEGATIVE) 06/16/19 02:16 Urine Ketones Negative (NEGATIVE) 06/16/19 02:16 Urine Occult Blood 3+ (NEGATIVE) 06/16/19 02:16 Urine Nitrite Negative (NEGATIVE) 06/16/19 02:16 Urine Bilirubin Negative (NEGATIVE) 06/16/19 02:16 Urine Urobilinogen Normal (NORMAL) 06/16/19 02:16 Ur Leukocyte Esterase Negative (NEGATIVE) 06/16/19 02:16 Urine RBC 3-5 /HPF (0-3) A 06/16/19 02:16 Urine WBC 0-2 /HPF (0-5) 06/16/19 02:16 Ur Squamous Epith Cells Rare /HPF (NEGATIVE) 06/16/19 02:16 Urine Bacteria Negative /HPF (NEGATIVE) 06/16/19 02:16 Ur Culture Indicated? No/not indicated 06/16/19 02:16 - Plan (1) Chest pain Status: Acute Plan: SERIAL CE AND EKG ON ADMISSION. CONTINUOUS SUPPLEMENTAL O2. CTA CHEST IN ER, HEPARIN DRIP. VERIFY HOME MEDICATION, SSI, BS CONTROL. ECHO, VENOUS US LE, RESP CONSULT. PAIN CONTROL, PT/PTT/INR. HYPER COAGULATION PANEL ON ADMISSION (2) Pneumonia Status: Acute Plan: IV ATBX, SPUTUM CULTURE. RESP THERAPY, REPEAT ABG TODAY (3) Shortness of breath Status: Acute (4) Diabetes Status: Acute (5) Hypertension Status: Acute (6) Pulmonary emboli Status: Acute Qualifiers: Pulmonary embolism type: multiple subsegmental (without acute cor pulmonale) Qualified Code(s): I26.94 - Multiple subsegmental pulmonary emboli without acute cor pulmonale (7) Abdominal pain Status: Acute Plan: CT ABD/PELVIS WITH CONTRAST. PRN PAIN CONTROL. UA ON ADMISSION, OCCULT STOOL IF BM
[2019-06-17] MEDS ORDERED: NS 1000 ML 1,000 ML IV SCH (19:00)
[2019-06-17] MEDS: LASIX IVP SCH (20:30)
[2019-06-17] MEDS: DUONEB 0.5 MG/3 MG (3 mL) NEB PRN (20:30)
[2019-06-17] MEDS: LIPITOR TAB 20 MG PO SCH (20:30)
[2019-06-17] MEDS: MICRO K EXTEN CAP 10 MEQ PO SCH (20:30)
[2019-06-17] MEDS: ELIQUIS PO SCH (20:30)
[2019-06-17] MEDS: ROBITUSSIN DM PO SCH (20:30)
[2019-06-18 05:20] LABS: BASOPHILS # (AUTO) 0.1 X10^3/uL (0.0-0.1); BASOPHILS % (AUTO) 1.2 % (0.2-1.0); EOSINOPHILS # (AUTO) 0.3 x10^3/uL (0.0-0.2); EOSINOPHILS % (AUTO) 2.5 % (0.9-2.9); HEMATOCRIT 33.8 % (36.0-47.0); HEMOGLOBIN 11.5 g/dL (12.0-16.0); LYMPHOCYTES # (AUTO) 1.8 X10^3/uL (1.3-2.9); LYMPHOCYTES % (AUTO) 18.2 % (21.0-51.0); MEAN CORPUSCULAR HEMOGLOBIN 30.5 pg (27.0-34.0); MEAN CORPUSCULAR VOLUME 89.6 fL (80.0-100.0); MEAN PLATELET VOLUME 9.7 fL (7.4-11.0); MONOCYTES # (AUTO) 0.9 x10^3/uL (0.3-0.8); MONOCYTES % (AUTO) 8.7 % (0.0-13.0); NEUTROPHILS % (AUTO) 69.4 % (42.0-75.0); PLATELET COUNT 171 X10^3/uL (150.0-450.0); RED BLOOD COUNT 3.77 X10^6/uL (3.5-5.4); RED CELL DISTRIBUTION WIDTH 12.9 % (11.6-16.5); WHITE BLOOD COUNT 10.1 X10^3/uL (3.6-10.0)
[2019-06-18 05:47] LABS: ALANINE AMINOTRANSFERASE 15 Units/L (12-78); ALBUMIN 2.4 g/dL (3.4-5.0); ALKALINE PHOSPHATASE 57 Units/L (46-116); ASPARTATE AMINO TRANSFERASE 13 Units/L (15-37); BLOOD UREA NITROGEN 15 mg/dL (7-18); CALCIUM 7.8 mg/dL (8.5-10.1); CARBON DIOXIDE 28.9 mmol/L (21-32); CHLORIDE 103 mmol/L (98-107); COR CA(FOR HYPOALB) 9.1 mg/dL (8.5-10.1); CREATININE 0.72 mg/dL (0.55-1.02); SODIUM 138 mmol/L (136-145); eGFR NON BLACK RACES > 60 (>60)
[2019-06-18] MEDS ORDERED: TOPROL XL PO ONE (08:15)
[2019-06-18] MEDS: DUONEB 0.5 MG/3 MG (3 mL) NEB PRN ×2 (08:21→21:09)
[2019-06-18] MEDS: PULMICORT NEB TX 0.5 MG NEB SCH ×2 (08:21→21:09)
[2019-06-18] MEDS: LASIX IVP SCH (08:22)
[2019-06-18] MEDS: ELIQUIS PO SCH ×2 (08:22→20:21)
[2019-06-18] MEDS: COZAAR PO SCH (08:22)
[2019-06-18] MEDS: PROTONIX TAB 40 MG PO SCH (08:23)
[2019-06-18] MEDS: SYNTHROID 125 mcg TAB PO SCH (08:23)
[2019-06-18] MEDS: ROCEPHIN VIAL 1 GRAM 1 G in NS 100 ML IV + SPIKE MINIBAG* 100 ML IV SCH (08:23)
[2019-06-18] MEDS: MICRO K EXTEN CAP 10 MEQ PO SCH (08:23)
[2019-06-18] MEDS: ROBITUSSIN DM PO SCH ×4 (08:23→21:19)
[2019-06-18] MEDS: TOPROL XL PO SCH (08:24)
[2019-06-18] MEDS: K-DUR TAB 20 MEQ PO PRN (08:24)
[2019-06-18] MEDS: COLACE CAP 100 MG PO SCH ×2 (10:41→20:20)
[2019-06-18] MEDS ORDERED: NS 100 ML IV 100 ML IV ONE (13:31)
--- NOTE | 2019-06-18 15:52 | MRI ---
MRI ABDOMEN W/WO CONTRASTClinical indication: ADRENAL MASSProcedure: Multiplanar multi sequence MRI of the abdomen were obtained with and without the administration of intravenous contrast according to standard departmental protocol.Contrast: 16 cc of MultiHanceComparisons:CT 06/17/2019Findings:MRI of the abdomen without contrast: No significant iron or fat deposition in the liver or spleen. No significant ascites.MRI of the abdomen with contrast: Liver and spleen are normal in size and morphology. No focal lesions. Gallbladder is present. No gallstones. No filling defects within the common bile duct. No ductal dilatation Pancreas demonstrates normal T1 signal. No pancreatic masses. Redemonstration of 5.3 cm right adrenal mass that does not lose signal on out of phase images. There appear to be some cystic components. Redemonstrated adjacent to the aorta on the left is a round lesion measuring 1.5 cm on series 1001, image 39 which is markedly bright on T1 and dark on T2. No enhancement. Kidneys demonstrate normal cortical medullary differentiation. No hydronephrosis. No suspicious lymph nodes.Impression:1. Right adrenal mass as above. This does not demonstrate characteristics consistent with a benign adenoma, nor does it have characteristics of a paraganglioma. Malignancy can certainly not be excluded.2. Re-demonstration of peripherally calcified lesion adjacent to the aorta. This is markedly hyperintense on T1 without enhancement. 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 This could potentially be evaluated by conventional angiography if clinically indicated.Electronically signed by: ANYA CALHOUN (Jun 18, 2019 15:51:03)
[2019-06-18] MEDS: LIPITOR TAB 20 MG PO SCH (20:21)
[2019-06-18] MEDS ORDERED: SALINE 3% 15 ML NEB TX NEB ONE (21:09)
[2019-06-19 05:53] LABS: BASOPHILS # (AUTO) 0.1 X10^3/uL (0.0-0.1); BASOPHILS % (AUTO) 0.9 % (0.2-1.0); EOSINOPHILS # (AUTO) 0.3 x10^3/uL (0.0-0.2); EOSINOPHILS % (AUTO) 3.2 % (0.9-2.9); HEMATOCRIT 34.4 % (36.0-47.0); HEMOGLOBIN 11.6 g/dL (12.0-16.0); LYMPHOCYTES % (AUTO) 22.5 % (21.0-51.0); MEAN CORPUSCULAR HEMOGLOBIN 30.7 pg (27.0-34.0); MEAN CORPUSCULAR HGB CONC 33.8 g/dL (33.0-35.0); MEAN CORPUSCULAR VOLUME 90.8 fL (80.0-100.0); MEAN PLATELET VOLUME 10.2 fL (7.4-11.0); MONOCYTES # (AUTO) 0.8 x10^3/uL (0.3-0.8); MONOCYTES % (AUTO) 8.6 % (0.0-13.0); NEUTROPHILS # (AUTO) 5.8 x10^3/uL (2.2-4.8); NEUTROPHILS % (AUTO) 64.8 % (42.0-75.0); PLATELET COUNT 196 X10^3/uL (150.0-450.0); RED BLOOD COUNT 3.79 X10^6/uL (3.5-5.4); RED CELL DISTRIBUTION WIDTH 12.9 % (11.6-16.5)
[2019-06-19 06:02] LABS: ALANINE AMINOTRANSFERASE 14 Units/L (12-78); ALBUMIN 2.5 g/dL (3.4-5.0); ALKALINE PHOSPHATASE 58 Units/L (46-116); ASPARTATE AMINO TRANSFERASE 15 Units/L (15-37); BLOOD UREA NITROGEN 18 mg/dL (7-18); CALCIUM 7.8 mg/dL (8.5-10.1); CARBON DIOXIDE 27.8 mmol/L (21-32); CHLORIDE 104 mmol/L (98-107); CREATININE 0.81 mg/dL (0.55-1.02); SODIUM 138 mmol/L (136-145); TOTAL PROTEIN 6.4 g/dL (6.4-8.2); eGFR NON BLACK RACES > 60 (>60)
[2019-06-19] MEDS: PULMICORT NEB TX 0.5 MG NEB SCH (09:46)
--- NOTE | 2019-06-19 11:50 | RAD ---
HISTORYSOB, ASTHMA, BRONCHITISSTUDYCHEST, 1 VIEW, done [id number] trachea is midline. The cardiac silhouette is upper normal in size. Atherosclerotic calcification of the aortic arch. There is hyperinflation of the upper lobes with linear foci of subsegmental atelectasis or scarring in the lung bases. Improved aeration is noted in both costophrenic angles. A tiny amount of right pleural effusion may be present. No pneumothorax is seen. There is no dense consolidation or CHF. . The bony thorax is unremarkable.IMPRESSIONHyperinflation of lungs with linear foci of subsegmental atelectasis in the the lung bases. Improved aeration is noted in both costophrenic angles with likely a small amount of residual right pleural effusion.Electronically signed by: MICHA MULLINS (Jun 19, 2019 11:48:44)
[2019-06-19] MEDS ORDERED: TOPROL XL PO ONE (11:53)
[2019-06-19 14:11] VITALS: BP 176/82
== END 2019-06-19 14:12 | disposition home or self-care (01) | DRG 175 ==
LOC: ER 20:22 → ICU 06-16 02:00
PROVIDERS: ADMIT Internal Medicine; ATTEND Internal Medicine
DX: J18.8 Other pneumonia, unspecified organism; I26.94 Multiple subsegmental thrombotic pulmonary emboli without acute cor pulmonale; R06.02 Shortness of breath; E03.8 Other specified hypothyroidism; I10 Essential (primary) hypertension; K21.9 Gastro-esophageal reflux disease without esophagitis; R07.81 Pleurodynia; R79.1 Abnormal coagulation profile; E11.65 Type 2 diabetes mellitus with hyperglycemia; R26.89 Other abnormalities of gait and mobility
CPT/HCPCS: 36415; 36600; 71010; 71045; 71275; 74177; 74183; 80053; 81001; 82378; 82550; 82553; 82615; 82803; 83090; 83615; 83735; 84132; 84439; 84443; 84484; 85025; 85300; 85301; 85303; 85305; 85306; 85307; 85378; 85610; 85730; 93005; 93306; 93970; 94640; 96365; 97110; 97116; 97161; 97166; 99285; A4222; J0696; J1644; J1815; J1940; J3475; J7030; J7040; J7050; J7620; J7626